=== PATIENT | male | born 1935 | race Caucasian/White ===

== ENCOUNTER 2018-06-03 08:28 | Day surgery (SDC) | payer MEDICARE ==
[~2018-06-03] VITALS: Ht 170.2 cm; Wt 109.0 kg
[~2018-06-03 08:28] MED LIST: ATOR10; BECLNI19AQ; BETA.05TC TP; DICYCLOMINE PO; DOCU100 PO; EZET10-40 PO; FENO54 PO; HYDCHL12.5 PO; IRBHYD150; VALS80 PO; VITAMIN D3 PO; VYTONE; [UNRECOGNIZED DRUG - CODE] TOP; [UNRECOGNIZED DRUG - OTHER] PO
[2018-06-03] MEDS ORDERED: ATOR40TA (09:43)
[2018-06-03] MEDS ORDERED: CREON DR 24,001 EACH (09:45)
[2018-06-03] MEDS ORDERED: BUME2 (09:45)
[2018-06-03] MEDS ORDERED: Aldactone50 MG (09:46)
[2018-06-03] MEDS ORDERED: LISI5 (09:46)
[2018-06-03] MEDS ORDERED: ABAT250V (09:46)
[2018-06-03] MEDS ORDERED: Advair Hfa 230-12 GM (09:47)
[2018-06-03] MEDS ORDERED: GLIP2.5ER (09:47)
[2018-06-03] MEDS ORDERED: FEBU40TA (09:49)
== END 2018-06-03 10:39 | disposition home or self-care (01) ==
LOC: ORSCSDS 08:28
PROVIDERS: Surgery
PROC: 0DBK8ZX Excision of Ascending Colon, Via Natural or Artificial Opening Endoscopic, Diagnostic (ICD-10-PCS; principal; 2018-06-03 09:45)
DX: Z12.11 Encounter for screening for malignant neoplasm of colon (principal); D12.2 Benign neoplasm of ascending colon; Z86.010 Personal history of colon polyps; E11.9 Type 2 diabetes mellitus without complications; I10 Essential (primary) hypertension; E78.00 Pure hypercholesterolemia, unspecified; Z87.11 Personal history of peptic ulcer disease; E66.9 Obesity, unspecified; Z68.39 Body mass index [BMI] 39.0-39.9, adult; Z79.82 Long term (current) use of aspirin; Z79.899 Other long term (current) drug therapy
CPT/HCPCS: 82947; 88305; J7120

== ENCOUNTER → 2021-02-20 | Outpatient (CLI) | payer MEDICARE ==
[~2021-02-20] MED LIST changes: +ABAT250V; +ATOR40TA; +Advair Hfa 230-12 GM; +Aldactone50 MG; +BUME2; +CREON DR 24,001 EACH; +FEBU40TA; +GLIP2.5ER; +LISI5
== END | disposition home or self-care (01) ==
LOC: LAB 11:14 → LAB SHORT 11:14
DX: D22.5 Melanocytic nevi of trunk (principal)
CPT/HCPCS: 88305

== ENCOUNTER → 2021-04-08 | Outpatient (CLI) | payer MEDICARE | LOC: LAB 08:36 → LAB SHORT 08:36 | DX: L60.2 Onychogryphosis (principal); B35.1 Tinea unguium | CPT/HCPCS: 88304; 88312 ==